=== PATIENT | female | born 2005 | race African-American/Black ===

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

== ENCOUNTER 2025-06-10 05:50 | Emergency (ER) | payer MEDICAID ==
[~2025-06-10] VITALS: Ht 172.7 cm; Wt 57.0 kg
[2025-06-10 05:55] VITALS: O2SAT 98
[2025-06-10 06:30] VITALS: TEMP 36.7
[2025-06-10 06:42] LABS: BASOPHILS % 0.6 % (0.0-2.0); EOSINOPHILS % 3.1 % (0.0-5.0); HEMATOCRIT. 36.8 % (36.0-48.0); HEMOGLOBIN. 12.6 g/dL (12.0-16.0); LYMPHOCYTES % 32.7 % (20.0-50.0); MEAN PLATELET VOLUME 8.8 fl (7.4-10.4); MONOCYTES % 5.5 % (2.0-8.0); NEUTROPHILS % 58.1 % (40.0-76.0); PLATELET 246 x1000/uL (130-400); RED BLOOD CELL COUNT 4.11 mill/uL (4.2-5.4); RED CELL DISTRIBUTION WIDTH 13.5 % (11.6-14.6)
[2025-06-10] MEDS: ACETAMINOPHEN 500MG TABLET PO ONE (06:49)
[2025-06-10] MEDS ORDERED: IPRATROPIUM BROMIDE (0.02%) 0.5MG/2.5ML NEB HHN ONE (07:00)
[2025-06-10] MEDS ORDERED: ALBUTEROL (0.083%) 2.5MG/3ML NEB HHN ONE (07:00)
[2025-06-10 07:03] LABS: CREATININE 0.7 mg/dL (0.6-1.0); UREA NITROGEN BLOOD 6 mg/dL (9-23)
[2025-06-10 07:08] LABS: HCG SCREEN POSITIVE
[2025-06-10 07:24] LABS: B-HCG QUANTITATIVE 176670 mIU/mL (<6)
[2025-06-10 07:24] LABS: CLARITY URINE CLEAR (CLEAR); COLOR URINE YELLOW (YELLOW); GLUCOSE URINE NEGATIVE (NEGATIVE); KETONES URINE NEGATIVE (NEGATIVE); LEUKOCYTE ESTERASE URINE NEGATIVE (NEGATIVE); NITRITE URINE NEGATIVE (NEGATIVE); OCCULT BLOOD URINE NEGATIVE (NEGATIVE); PH URINE 6.5 (4.5-8.0); PROTEIN URINE NEGATIVE (NEGATIVE); SPECIFIC GRAVITY URINE 1.012 (1.005-1.030); UROBILINOGEN URINE 1.0 E.U./dL (0.2-1.0)
[2025-06-10 07:51] VITALS: TEMP 98
[2025-06-10] MEDS ORDERED: TOPUD PO (08:02)
[2025-06-10 08:10] VITALS: BP 99/50; PULSE 60; RESP 13; O2SAT 100
== END 2025-06-10 08:26 | disposition home or self-care (01) ==
LOC: ER 05:50
DX: O20.0 Threatened abortion (principal); O99.511 Diseases of the respiratory system complicating pregnancy, first trimester; J45.909 Unspecified asthma, uncomplicated; O99.341 Other mental disorders complicating pregnancy, first trimester; F32.A Depression, unspecified; Z79.899 Other long term (current) drug therapy; Z3A.11 11 weeks gestation of pregnancy
CPT/HCPCS: 36415; 76801; 80048; 81003; 81025; 84702; 84703; 85025; 86850; 86900; 99284